=== PATIENT | male | born 1950 | race Caucasian/White ===

== ENCOUNTER 2017-07-21 06:45 | Day surgery (SDC) | payer OTHER ==
[~2017-07-21] VITALS: Ht 177.8 cm; Wt 90.7 kg
[~2017-07-21 06:45] MED LIST: ALLEGRA ALLERG180 MG PO; LOSARTAN POTAS100 MG PO; TAZTIA XT240 MG PO
--- NOTE | 2017-07-21 10:31 | NUR ---
07/21/17 1031 Natalia Cornejo 1027 - PT ARRIVED FROM PACU. NOT RESPONDING AT THIS TIME. OPA IN PLACE.
[2017-07-21] MEDS ORDERED: NORCO 5-325 TA1 EACH PO (11:33)
--- NOTE | 2017-07-21 14:31 | NUR ---
PT ALERT, ORIENTED AND SUPPORTED BY HIS DAUGHTER DEBRA. HE SEEMED INFORMED AND DEALING APPROPRIATELY. DEBRA SEEMS VERY ENGAGED WITH HER FATHER'S CARE. WILL STAY WITH HIM FOR A WEEK FOLLOWING DC. HAD PRAYER WITH PT, WILL FOLLOW NEEDED
--- NOTE | 2017-07-22 16:42 | OR ---
[facility] [address], [place] [address] Signed DATE OF OPERATION: 07/21/2017 SURGEON: Ro Saeed MD PREOPERATIVE DIAGNOSIS: Right inguinal hernia. POSTOPERATIVE DIAGNOSIS: Reducible right direct inguinal hernia. PROCEDURE: Right Jason onlay mesh inguinal herniorrhaphy. ESTIMATED BLOOD LOSS: None. INDICATIONS: Gianfranco is a 66-year-old gentleman, who was having a dull sense of pain and achiness in his right groin. He could feel some swelling in the groin. He had been to his primary care provider. It was realized that he had a small to moderate sized right inguinal hernia. He said he always has a little pain about 2 or 3/10. It is worse with activities. 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 He has had quite a bit, but he noticed the pain is getting worse over the last several weeks including while sitting. He mentioned it to his primary care provider once again. He was therefore asked to see me with respect to the above. In the office, he does have a small to moderate sized tender right inguinal hernia on exam. His left was unremarkable. I gave Gianfranco a [employer] brochure on hernias. We looked at that together in detail. He understands the nature of an inguinal hernia along with the difference between a primary suture repair and a mesh repair. He also understands expected intraop and postop course. There is risk of surgery including, but not limited to, bleeding, infection, scarring, change in contour of the skin, damage to nerves, ischemic orchitis, recurrent hernias, and chronic pain. He had expressed understanding and wished to proceed. PROCEDURE NOTE: I met with Gianfranco in our preop area. We both agreed it was the right groin. The right groin was marked appropriately. After this, Gianfranco was taken into our operating room and placed in the supine position under general endotracheal tube anesthesia. He was given preoperative antibiotics along with subcutaneous heparin. SCDs were utilized. He was then prepped and draped in the usual sterile fashion. After this, a standard oblique incision was made over the right groin and carried through the tissue bluntly and with Electronically Signed By: RO SAEED MD 07/22/17 1642 PATIENT NAME: GIANFRANCO LOVE OPERATIVE REPORT DATE OF : 54 PHYSICIAN: RO SAEED MD REPORT #: [id number] REPORT IS CONFIDENTIAL AND NOT TO BE RELEASED WITHOUT AUTHORIZATION [facility] [address], [place] [address] Signed the cautery. The external oblique fascia was opened along its length and the iliohypogastric and ilioinguinal nerves were protected throughout the case. The cord structures were then elevated to the level of pubic tubercle. We could easily see a small to moderate sized, but reducible direct hernia. We inspected the cord structures at the level of deep ring, particular on the anteromedial side. Careful inspection did not reveal any indirect hernia component. After this, the direct hernia was reduced and the inguinal floor was imbricated from the pubic tubercle up to the deep ring with the help of a running 2-0 PDS suture. This was done to simply hold the hernia down and out of the way. After this, a piece of flat Prolene mesh was cut to fit his groin and a slit was made in the mesh to accommodate the cord structures at the level of deep ring. The mesh was then held in place medially and laterally with the help of a running #1 Prolene suture. After this, the operative field was infiltrated with local anesthetic. The wound was then irrigated and suctioned out until clear. The external oblique fascia was closed over the repair with the help of a running 2-0 PDS suture. The Lauro's fascia was reapproximated with a running 3-0 Monocryl suture. The dermis was reapproximated with interrupted 3-0 subcuticular Monocryl sutures. The skin edges were reapproximated with a running 6-0 fast absorbing plain gut suture. Dry gauze and tape were then applied. Gianfranco was then awakened from his anesthesia, extubated in the OR, and taken to recovery room in stable condition. Ro Saeed MD ALB/MODL /[id number] cc: OLMAN Guillen Electronically Signed By: RO SAEED MD 07/22/17 1642 PATIENT NAME: GIANFRANCO LOVE OPERATIVE REPORT DATE OF : 54 PHYSICIAN: RO SAEED MD REPORT #: [id number] REPORT IS CONFIDENTIAL AND NOT TO BE RELEASED WITHOUT AUTHORIZATION
== END 2017-07-21 13:35 | disposition home or self-care (01) ==
LOC: DS 06:45 → OPS 08:45 → DS 08:45
PROVIDERS: Colon & Rectal Surgery
PROC: 0YU50JZ Supplement Right Inguinal Region with Synthetic Substitute, Open Approach (ICD-10-PCS; principal; 2017-07-21 08:45)
DX: K40.90 Unilateral inguinal hernia, without obstruction or gangrene, not specified as recurrent (principal); I10 Essential (primary) hypertension; J45.909 Unspecified asthma, uncomplicated; Z87.11 Personal history of peptic ulcer disease; Z98.890 Other specified postprocedural states; Z88.8 Allergy status to other drugs, medicaments and biological substances; Z79.899 Other long term (current) drug therapy
CPT/HCPCS: 00830; C1781; J0330; J0690; J1100; J1644; J1885; J2250; J2405; J2704; J2710; J3010; J7120